=== PATIENT | male | born 1975 | race Caucasian/White ===

== ENCOUNTER → 2019-10-10 14:34 | Outpatient (CLI) | payer OTHER, SELFPAY ==
--- NOTE | ~2019-10-10 | XR_ITS ---
EXAMINATION: XR ribs RT 2V w CXR 2V INDICATION: Right chest pain after fall TECHNIQUE: PA and lateral views of the chest and 3 views of the right ribs were obtained. COMPARISON: None. FINDINGS: The lungs are free of acute opacities. There is no pleural effusion or pneumothorax. The ca rdiomediastinal silhouette is normal. No displaced rib fracture is identified. Subtle irregularity at the lateral aspect of the right ninth rib could reflect a nondisplaced fracture. IMPRESSION: 1. No acute cardiopulmonary abnormality. 2. Possible nondisplaced ninth rib fracture. Reviewed, dictated and finalized at location A.
== END ==
PROVIDERS: PCP Family Medicine; Visit Provider Physician Assistant
DX: S20.211A Contusion of right front wall of thorax, initial encounter (principal); X58.XXXA Exposure to other specified factors, initial encounter
CPT/HCPCS: 71046; 71100

== ENCOUNTER 2020-10-14 08:40 | Outpatient (CLI) | payer OTHER, SELFPAY ==
--- NOTE | 2020-10-14 08:52 | EST_ITS ---
Patient Info Name: Nestor Olmos Age: 45 years : 1975 Gender: Male Ht: 71 in Wt: 165 lbs BSA: 1.94 m2 Exam Date: 10/14/2020 9:19 AM Exam Location: [facility] Stress Patient Status: Outpatient Admit Date: 10/14/2020 Staff Ordering Physician: Cliff Fermin PA-C Attending Provider: Cliff Fermin PA-C Exercise Technologist: Jacki Ritter RDCS Exercise Physician: Niraj Lane DO Exam Type: CA stress test treadmill Study Info Indications R07.9 - Chest pain, unspecified A treadmill exercise stress test was performed. Summary 1. 1. Negative Joshua exercise stress test for ischemic ST changes by ECG criteria. 2. 2. Good functional capacity, achieving 12 METs of workload. 3. 3. Appropriate HR response to exercise. 4. 4. Appropriate HR recovery at 1 minute post exercise. 5. 5. No imaging with stress testing. 6. 6. Patient informed of the above results. Protocol: Joshua Stress ECG Details Stage: REST Duration (min): 1 min : 16 sec Speed (mph): 0.0 Grade (%): 0 HR (bpm): 59 SBP (mmHg): 129 DBP (mmHg): 66 METS: --- Stage: REST Duration (min): 8 min : 41 sec Speed (mph): 1.0 Grade (%): 0 HR (bpm): 62 SBP (mmHg): 129 DBP (mmHg): 66 METS: --- Stage: STAGE 1 Duration (min): 1 min : 0 sec Speed (mph): 1.7 Grade (%): 10 HR (bpm): 84 SBP (mmHg): 129 DBP (mmHg): 66 METS: --- Stage: STAGE 1 Duration (min): 2 min : 0 sec Speed (mph): 1.7 Grade (%): 10 HR (bpm): 87 SBP (mmHg): 129 DBP (mmHg): 66 METS: --- Stage: STAGE 1 Duration (min): 3 min : 0 sec Speed (mph): 1.7 Grade (%): 10 HR (bpm): 86 SBP (mmHg): 135 DBP (mmHg): 54 METS: --- Stage: STAGE 2 Duration (min): 1 min : 0 sec Speed (mph): 2.5 Grade (%): 12 HR (bpm): 97 SBP (mmHg): 135 DBP (mmHg): 54 METS: --- Stage: STAGE 2 Duration (min): 2 min : 0 sec Speed (mph): 2.5 Grade (%): 12 HR (bpm): 95 SBP (mmHg): 136 DBP (mmHg): 54 METS: --- Stage: STAGE 2 Duration (min): 3 min : 0 sec Speed (mph): 2.5 Grade (%): 12 HR (bpm): 100 SBP (mmHg): 136 DBP (mmHg): 54 METS: --- Stage: STAGE 3 Duration (min): 1 min : 0 sec Speed (mph): 3.4 Grade (%): 14 HR (bpm): 106 SBP (mmHg): 96 DBP (mmHg): 69 METS: --- Stage: STAGE 3 Duration (min): 2 min : 0 sec Speed (mph): 3.4 Grade (%): 14 HR (bpm): 102 SBP (mmHg): 128 DBP (mmHg): 76 METS: --- Stage: STAGE 3 Duration (min): 3 min : 0 sec Speed (mph): 3.4 Grade (%): 14 HR (bpm): 115 SBP (mmHg): 114 DBP (mmHg): 69 METS: --- Stage: STAGE 4 Duration (min): 1 min : 0 sec Speed (mph): 4.2 Grade (%): 16 HR (bpm): 124 SBP (mmHg): 114 DBP (mmHg): 69 METS: --- Stage: STAGE 4 Duration (min): 2 min : 0 sec Speed (mph):
== END 2020-10-14 08:41 | disposition home or self-care (01) ==
PROVIDERS: PCP Family Medicine; Visit Provider Physician Assistant Medical
DX: R07.9 Chest pain, unspecified (principal); R06.02 Shortness of breath
CPT/HCPCS: 93017

== ENCOUNTER 2020-12-26 00:55 | Day surgery (SDC) | payer OTHER, SELFPAY ==
[2020-12-18 09:50] VITALS: BMI 23.7
[2020-12-26] VITALS (15 sets, daily range): BP systolic 121–147; BP diastolic 49–89; PULSE 49–81; RESP 10–16; TEMP 36.1–36.3; O2SAT 94–100; BMI 23.4
[2020-12-26] MEDS: LACTATED RINGERS 1,000 ML 30 ML IV CONT ×3 (10:56→17:04)
[2020-12-26] MEDS: ACETAMINOPHEN 500 MG TABLET 1000 MG PO (11:04)
[2020-12-26] MEDS: KETOROLAC 15 MG/ML VIAL (*BKC) IV PUSH ×2 (11:04→18:54)
--- NOTE | 2020-12-26 11:48 | P.PNAN_ITS ---
Anes - Initial Pre Proc Eval Procedure: Operation Date: 12/26/20 12:00 Proposed Procedures p Robotic Assisted Laparoscopic Right Inguinal Hernia Repair With Mesh - Karla Tilley MD Date/Time: 12/26/20 11:48 Surgeon: Karla Tilley MD Pre Op Diagnosis: Right Inguinal Hernia Patient Data Age: 45 Gender: M Height: 1.8 m Weight: 76.3 kg Last Vital Signs Temp 36.3 C L 12/26/20 10:45 Pulse 64 12/26/20 10:45 Resp 14 12/26/20 10:45 BP 127/73 12/26/20 10:45 Pulse Ox 99 12/26/20 10:45 Allergies Allergy/AdvReac Type Severity Reaction Status Date / Time No Known Allergies Allergy Verified 12/20/20 13:50 Home Medications Medication Instructions Recorded Confirmed Type No Home Medications 02/29/20 12/24/20 History Patient hx anesthesia problems: none Family hx anesthesia problems: none Results Review: All pre-operative results and documents have been reviewed as part of the pre-operative evaluation. COUNTS INCLUDE 234 BEDS AT THE [facility] Past Medical History Medical History Anxiety Depression Hyperlipidemia Hypertension Surgical History Surgical History H/O left knee surgery Family History Family History Mother Diabetes mellitus Breast cancer Hypertension Social History Social History Second hand tobacco smoke exposure: No Alcohol intake: current Drinks per week: 24 Alcohol use details: VARIES - 1 OR 2 WEEKNIGHTS AND SOME WEEKENDS Substance use: never Substance use type: does not use Living arrangements: with family Additional occupation/education comments: Teacher Gender identity (if verbalized by the patient): Male Spiritual care concerns: No Anes - Eval Final PreProcedure Day of Procedure 12/26/20 11:48 Patient weight: normal Heart: regular rate and rhythm Lungs: clear to auscultation Airway: Mallampati scale class II Neurological: alert and oriented Last oral intake: >/= 8 hours ASA classification: II Emergent: no Anesthetic plan: proceed Anesthesia type and monitoring: general ETT and standard monitoring Results Review: All pre-operative results and documents have been reviewed as part of the pre-operative evaluation. Informed Consent: The patient's anesthetic plan and its attendant risks and benefits were discussed with the patient/family/POA. Questions were solicited and answers provided to the satisfaction of the patient/family/POA.
--- NOTE | 2020-12-26 11:57 | PM.IMHP ---
H&P: HPI History of Present Illness Date/Time: 12/26/20 11:57 Pt reports right groin bulging and discomfort over last several yrs. Pt reports hernia slowly growing in size and much more symptomatic at this time. Pt reports discomfort, pain in area with exertion, urination. Pt denies any s/s incarceration, obstruction. Pt reports he is trina reg diet and having normal bowel fxn. Chief Complaint: [facility] Review of Systems Review of Systems: All systems reviewed & are unremarkable except as noted in HPI and below [facility] Past Medical History Medical History Anxiety Depression Hyperlipidemia Hypertension Surgical History Surgical History H/O left knee surgery Family History Family History Mother Diabetes mellitus Breast cancer Hypertension Social History Social History Second hand tobacco smoke exposure: No Alcohol intake: current Drinks per week: 24 Alcohol use details: VARIES - 1 OR 2 WEEKNIGHTS AND SOME WEEKENDS Substance use: never Substance use type: does not use Living arrangements: with family Additional occupation/education comments: Teacher Gender identity (if verbalized by the patient): Male Spiritual care concerns: No Meds Home Medications and Allergies Home Medications Medication Instructions Recorded Confirmed Type No Home Medications 02/29/20 12/24/20 History Allergies Allergy/AdvReac Type Severity Reaction Status Date / Time No Known Allergies Allergy Verified 12/20/20 13:50 Vital Signs Vital Signs - 24 hr 12/26/20 10:45 Temperature 36.3 C L Pulse Rate 64 Respiratory Rate 14 Blood Pressure 127/73 Pulse Oximetry 99 Exam Const: General: cooperative, comfortable and no acute distress Nutritional Appearance: average body habitus Orientation/consciousness: patient oriented x3 Limitations: no limitations HENMT: Head: normal to inspection, normocephalic and atraumatic Cardio: Rate: regular rate Rhythm: regular rhythm GI: Inspection: normal to inspection GI Palp: Yes abdominal tenderness, Yes Soft to palpation and Yes Hernia present Other: RI - reducible Assessment and Plan Assessment and plan (1) Inguinal hernia, right: Code(s): K40.90 - Unilateral inguinal hernia, without obstruction or gangrene, not specified as recurrent Status: Acute Assessment and Plan: proceed c robotic assisted RIH repair c mesh
--- NOTE | 2020-12-26 12:00 | WPDHPUPDATE1 ---
History and Physical Update Update Date/Time: 12/26/20 12:00 History and Physical has been reviewed, including an updated exam of the patient. There are NO changes in the patient's condition. Risks, benefits, and alternatives have been discussed and questions answered. Patient agrees to proceed with procedure.
[2020-12-26] MEDS: ceFAZolin 2 GM/D5W 50 ML 2 GM/50 ML BAG IVPB (12:04)
[2020-12-26] MEDS: BUPIVACAINE HCL 0.5% PF 30 ML VIAL INFILTRATE (12:39)
--- NOTE | 2020-12-26 14:04 | W.PM.PROC2 ---
Procedure Note - Detailed Date of Procedure 12/26/20 Pre-op Diagnosis Right Inguinal Hernia Post-op Diagnosis same Procedure Performed robotic assisted right inguinal hernia repair with mesh Surgeon Karla Tilley MD Anesthesia general Indications 45-year-old male with progressively worsening right inguinal hernia over the last few years Findings indirect right inguinal hernia Description of Procedure Patient was brought into the operating room and placed in the supine position. After adequate induction of general anesthesia, the patient was prepped and draped in normal sterile fashion. A time-out was then done to verify the patient's identity, as well as the procedure being performed. Began by making a 8 mm incision in the supraumbilical region, a Veress needle was then placed into the peritoneal cavity. CO2 gas was then insufflated and after adequate pneumoperitoneum was achieved, the Veress needle was removed. I then placed an 8 mm trocar through this incision. I then placed the endoscope through this trocar site and under direct visualization placed 2 further 8 mm ports in the right and left mid abdomen. The [employer] robot was then docked to the 3 trocar sites. I then scrubbed out and went to the robotic console. Upon examining the pelvis, it was noted that the patient had a large right inguinal hernia. The left side was examined and no hernia defect was noted. I began by making a preperitoneal flap approximately 6 cm superior to the defect. This flap was carried medially past the umbilical ligaments in laterally to the transversalis. It then began dissection of my medial compartment taking this down to the pubic tubercle. I then began the lateral dissection taking this down to the transversalis fascia. Once these compartments were achieved, I began dissection around the cord structures. A large indirect hernia was noted at this point. Using careful dissection, was able to reduce indirect hernia sac off the cord structures. Once this was adequately done, I went ahead and placed a large piece of 3D Max mesh into the abdominal cavity. The mesh was carefully positioned, centering the center of the mesh over the indirect defect. Once this was done, was very satisfied with our repair. Using 3-0 Vicryl sutures, I tacked the mesh medially to Jace's ligament. Two lateral sutures were placed from the mesh to the transversalis fascia. I then closed the peritoneal flap with a running 2.0 V Lock suture. The abdomen was then desufflated, and all ports were removed. All incisions were then closed with the 4.0 monocryl suture. Dermabond was placed on each wound. The patient tolerated the procedure well, was extubated in the operating room postoperatively, and will now be transferred to the recovery room in stable condition. Implants large 3DMax mesh Estimated Blood Loss 10 Drains No Packing No Pathology none sent Complications No immediate complications Condition stable Disposition PACU
[2020-12-26] MEDS: fentaNYL CITRATE INJ (*CRX) 100 MCG/2 ML VIAL 25 MCG IV PUSH ×3 (14:22→14:44)
[2020-12-26] MEDS: oxyCODONE HCL (*CRX) 5 MG TAB IR PO (15:05)
--- NOTE | 2020-12-26 19:12 | SUR.PHASEII ---
BLADDER SCAN DONE AT 1830 = [address] DR[address] GORDON CALLED WHO INSTRUCTED TO STRAIGHT CATHETERIZE PATIENT; PATIENT ATTEMPTING TO URINATE AGAIN.
== END 2020-12-26 19:33 | disposition home or self-care (01) ==
PROVIDERS: PCP Family Medicine; Visit Provider Surgery
PROC: 8E0Y4CZ Robotic Assisted Procedure of Lower Extremity, Percutaneous Endoscopic Approach (ICD-10-PCS; CPT 49650; principal; 2020-12-26 12:00)
DX: K40.90 Unilateral inguinal hernia, without obstruction or gangrene, not specified as recurrent (principal); I10 Essential (primary) hypertension; E78.5 Hyperlipidemia, unspecified; F41.8 Other specified anxiety disorders
CPT/HCPCS: 49650; S2900; 36415; 86850; 86900; 86901; A9270; J0690; J1885; J2250; J2270; J2405; J2704; J2710; J3010; J7030; J7120